=== PATIENT | female | born 1960 | race Caucasian/White ===

== ENCOUNTER 2016-05-23 21:03 | Emergency (ER) | payer SELFPAY ==
--- NOTE | ~2016-05-23 | ER ---
PATIENT'S NAME: SINAN CRUZ [facility] [place] AGE: 55 Y [address] ROOM: [place] [address] LOCATION: [facility] ADMIT DATE: 05/23/2016 ER/Outpatient Report DISCHARGE DATE: FAMILY PHYSICIAN: Physician, Unknown ATTENDING PHYSICIAN: Gary Deleon Time of Arrival: Time of Evaluation: Admission date and time documented in the medical record. I saw the patient at 2125 hours. CHIEF COMPLAINT: Midepigastric abdominal pain with nausea and vomiting. HISTORY OF PRESENT ILLNESS: The patient is a 55-year-old female, who developed some midepigastric pain nonradiating about 1300 hours. It has been constant since that time. It is not giving up. She has taken Mcintire without improvement. She had nausea with 1 episode of vomiting. No diarrhea. She has also had some right arm and shoulder pain with this. No shortness of breath. No other chest pain or upper back pain. No lightheadedness, dizziness, syncope, or near syncope. No fall or trauma. No recent colds, coughs, flus, fever, chills, or sweats. No headache, eyes, ears, nose, throat, neck, or spine pain. No urinary symptoms. No joint or muscle swelling, redness, or pain other than the right shoulder and arm. No skin eruptions or rash. No history of endocrine problems. Does have anxiety and depression, but no psychosis. No neurological changes. HOME MEDICATIONS: See attached medication list. ALLERGIES: NONE. SOCIAL HISTORY: Nonsmoker. Nondrinker. SIGNIFICANT PAST MEDICAL HISTORY: 1. Anxiety and depression. 2. Gastroesophageal reflux. 3. Known cholelithiasis. She is going to have her gallbladder out, I believe on May 28. 4. Peptic ulcer disease. 5. Hypertension. PAST SURGICAL HISTORY: Operations: None. PATIENT'S NAME: SINAN CRUZ [facility] [place] AGE: 55 Y [address] ROOM: [place] [address] LOCATION: [facility] ADMIT DATE: 05/23/2016 ER/Outpatient Report DISCHARGE DATE: FAMILY PHYSICIAN: Physician, Unknown ATTENDING PHYSICIAN: Gary Deleon REVIEW OF SYSTEMS: All systems reviewed by me are negative with the exception of those discussed in the History of the Present Illness. PHYSICAL EXAMINATION: VITAL SIGNS: Temperature 97.6, tympanic; pulse 72; respiratory rate 16; blood pressure 196/103; and O2 saturation on room air is 96%. HEENT: Head; normocephalic. Eyes, ears, nose, and throat; clear. Mucous membranes moist. NECK: No nuchal rigidity. No thyromegaly or cervical lymphadenopathy. No tenderness. SPINE: Nontender. No deformity. LUNGS: Clear. Good air flow. No rales, rhonchi, or wheezes. HEART: Regular. Pulses are palpable. No chest wall or ribcage pain to palpation. ABDOMEN: Soft, nondistended. Good bowel tones. No organomegaly or abnormal mass palpable. Some tenderness in the epigastric region, but knows no rebound tenderness. No true guarding or rigidity. No CVA tenderness. EXTREMITIES: Intact. No real tenderness to palpation of her right shoulder or right arm. No deformities. No peripheral edema, cyanosis. NEUROLOGIC: Neurovascularly intact. SKIN: Clear. No skin eruptions or rash. DIAGNOSTIC DATA: EKG showed sinus rhythm. No acute ST elevation, ischemic change, or arrhythmia. LABORATORY DATA: CMS was normal except for an elevated glucose of 146. Amylase and lipase were normal. CPK was 58. Point of care cardiac enzymes were normal. White count was 7500, 69 segs, 20 lymphs, 8 monos, 2 eos, and 1 baso. Hemoglobin is 13.7, hematocrit is 42.1, and platelet count is 251,000. Ultrasound of the gallbladder showed multiple gallstones. There was no thickening of the gallbladder wall. There was no pericholecystic fluid. Common duct was 6 mm, but there was no obstructing stone. The pancreas looked okay. See the ultrasound dictated transcribed report. IMPRESSION: 1. Midepigastric pain secondary to cholelithiasis. No evidence of acute cholecystitis. 2. History of peptic ulcer disease. 3. Hypertension. 4. Gastroesophageal reflux. 5. Anxiety and depression. PATIENT'S NAME: SINAN CRUZ [facility] [place] AGE: 55 Y [address] ROOM: [place] [address] LOCATION: [facility] ADMIT DATE: 05/23/2016 ER/Outpatient Report DISCHARGE DATE: FAMILY PHYSICIAN: Physician, Unknown ATTENDING PHYSICIAN: Gary Deleon PLAN: We did give the patient IV fluids, Dilaudid 1 mg IV in the emergency room for pain, and Zofran 4 mg IV in the emergency room for nausea and vomiting. The patient did well. On dismissal was pain-free. The patient dismissed home. Observation. Activity as tolerated. Continue home medications and care. Avoid greasy, spicy, or fried foods. Follow up with personal physician as needed or as scheduled. Again, the patient is going to have a cholecystectomy on May 28 of this year. Discussion ensued with the patient concerning my findings and recommendations, she understands. MD DELGADO SANCHEZ/alena /[id number] d: 05/23/162 t: 05/24/16 1825, OUTPATIENT REPORT
[~2016-05-23 21:03] MED LIST: ARNUITY ELLIP100 MCG NOSE; EFFEXOR XR75 MG PO; GAVISCON ES TA1 EACH PO; LOPRESSOR25 MG PO; PRILOSEC20 MG PO; PROTONIX40 MG PO
[2016-05-23 21:59] LABS: BASOPHIL # 0.1 K/uL (0.0-0.2); BASOPHIL % 0.9 %; EOSINOPHIL # 0.1 K/uL (0.0-0.5); EOSINOPHIL % 1.6 %; HEMATOCRIT 42.1 % (33.0-46.0); HEMOGLOBIN 13.7 g/dL (10.0-15.0); IMMATURE GRANULOCYTE % 0.3 %; LYMPHOCYTE # 1.5 K/uL (0.8-4.0); LYMPHOCYTE % 19.9 %; MCH 27.8 pg (27.0-34.0); MCHC 32.5 gm/dL (32.0-36.5); MCV 85.4 fl (83.0-98.0); MONOCYTE # 0.6 K/uL (0.0-1.0); MONOCYTE % 7.9 %; MPV 9.9 fl (9.4-12.4); NEUTROPHIL # (ANC) 5.2 K/uL (1.8-7.8); NEUTROPHIL % 69.4 %; NRBC % 0 /100WBC (0-0.00); PLATELET COUNT 251 K/uL (150-450); RBC 4.93 M/uL (3.50-5.50); RDW-CV 14.4 % (11.9-14.6); WBC 7.5 K/uL (4.0-11.0)
[2016-05-23 22:18] LABS: ALBUMIN 3.6 gm/dL (3.5-5.0); ALK PHOS 81 IU/L (33-138); ALT 62 IU/L (12-78); ANION GAP 12.7 (10.0-19.0); AST 38 IU/L (10-40); BLOOD UREA NITROGEN 9 mg/dL (6-24); CALCIUM 8.6 mg/dL (8.5-10.5); CHLORIDE 104 mMol/L (96-110); CO2 27 mMol/L (22-32); CPK 58 IU/L (21-215); CREATININE 0.9 mg/dL (0.5-1.1); ESTIMATED GFR (MDRD EQUATION) > 60; POTASSIUM 3.7 mMol/L (3.7-5.1); SODIUM 140 mMol/L (135-145); TOTAL BILIRUBIN 0.6 mg/dL (0.0-1.5); TOTAL PROTEIN 7.7 g/dL (6.0-8.4)
[2016-05-28] MEDS ORDERED: GLUCOSAMINE H1500 MG PO (09:51)
[2016-05-28] MEDS ORDERED: ZYRTEC10 M3 PO (09:51)
[2016-05-28] MEDS ORDERED: CHOLEST CARE500 MG PO (09:52)
[2016-05-28] MEDS ORDERED: NORCO 5-325 TA1 EACH PO (13:41)
[2016-05-30] MEDS ORDERED: PERCOCET 5-3251 EACH PO (12:31)
== END 2016-05-23 22:54 | disposition disaster alternative care site (69) ==
LOC: GMED 21:03
PROVIDERS: Emergency Medicine
DX: K80.20 Calculus of gallbladder without cholecystitis without obstruction (principal); I10 Essential (primary) hypertension; K21.9 Gastro-esophageal reflux disease without esophagitis; F41.9 Anxiety disorder, unspecified; F32.9 Major depressive disorder, single episode, unspecified
CPT/HCPCS: J1170; J2405; J7030

== ENCOUNTER → 2016-06-05 | Day surgery (SDC) | payer SELFPAY ==
[~2016-06-05] VITALS: Ht 165.1 cm; Wt 102.5 kg
[~2016-06-05] MED LIST changes: +CHOLEST CARE500 MG PO; +GLUCOSAMINE H1500 MG PO; +NORCO 5-325 TA1 EACH PO; +PERCOCET 5-3251 EACH PO; +ZYRTEC10 M3 PO
== END | disposition disaster alternative care site (69) ==
LOC: GOPP 09:00 → EDSTATUS 09:00 → GEND 09:33
PROC: 0FJD8ZZ Inspection of Pancreatic Duct, Via Natural or Artificial Opening Endoscopic (ICD-10-PCS; principal; 2016-06-05)
DX: K80.50 Calculus of bile duct without cholangitis or cholecystitis without obstruction (principal); I10 Essential (primary) hypertension; F41.9 Anxiety disorder, unspecified; F32.9 Major depressive disorder, single episode, unspecified; E78.5 Hyperlipidemia, unspecified; G43.909 Migraine, unspecified, not intractable, without status migrainosus; Z87.891 Personal history of nicotine dependence; Z90.49 Acquired absence of other specified parts of digestive tract; Z90.710 Acquired absence of both cervix and uterus; Z93.3 Colostomy status; Z88.2 Allergy status to sulfonamides; Z88.8 Allergy status to other drugs, medicaments and biological substances; Z79.82 Long term (current) use of aspirin; Z79.899 Other long term (current) drug therapy
CPT/HCPCS: C1769; J1610; J2405; J2550; J7030